=== PATIENT | female | born 1960 | race African-American/Black ===

== ENCOUNTER 2025-06-07 23:44 | Emergency (ER) | payer MEDICARE, MEDICAID ==
[~2025-06-07] VITALS: Ht 167.6 cm; Wt 70.0 kg
[2025-06-07 23:46] VITALS: O2SAT 99
[2025-06-08] MEDS: ONDANSETRON HCL 4MG/2ML INJ IV ONE (00:45)
[2025-06-08] MEDS: MORPHINE SULFATE 4 MG/ML INJ (FOR IV/IM USE) IV ONE (00:45)
[2025-06-08] MEDS ORDERED: ACET-2708 MT (02:58)
[2025-06-08 06:20] VITALS: BP 123/63; PULSE 58; RESP 15; TEMP 36.8; O2SAT 96
== END 2025-06-08 06:20 | disposition home or self-care (01) ==
LOC: ER 23:44
DX: M25.551 Pain in right hip (principal); I10 Essential (primary) hypertension; J44.9 Chronic obstructive pulmonary disease, unspecified; Z88.0 Allergy status to penicillin
CPT/HCPCS: 99285; 73503; 73552; 96374; 73700; 96375; J2405; J2270